=== PATIENT | female | born 1970 | race Caucasian/White ===

== ENCOUNTER 2019-10-26 07:53 | Emergency (ER) | payer MEDICAID ==
[~2019-10-26] VITALS: Ht 167.6 cm; Wt 72.0 kg
[~2019-10-26 07:53] MED LIST: ALBU8.5H4 IH; ASPI-130 PO; BUTA-281 PO; CALC-1233 PO; CARB1DRO12 EACHEYE; CARB1TAB23 PO; CYCL-394 PO; DESO60OI10 TP; DIPH-423 PO; ESTR1PAT60 TD; FLUO15OI2 TP; FLUO20CA39 PO; HYDR-3965 PO; HYDR200T84 PO; IBUP-1984 PO; LORA-512 PO; METH2.5T55 PO; MULT-785 PO; OMEP-84 PO; PRED-352 PO; TRAZ-91 PO
[2019-10-26 07:57] VITALS: BP 104/68
[2019-10-26] MEDS ORDERED: AZIT-72 PO (08:14)
== END 2019-10-26 08:28 | disposition home or self-care (01) ==
LOC: ER 07:53
DX: H66.92 Otitis media, unspecified, left ear (principal); G43.909 Migraine, unspecified, not intractable, without status migrainosus; J44.9 Chronic obstructive pulmonary disease, unspecified; M19.90 Unspecified osteoarthritis, unspecified site; G89.29 Other chronic pain; M79.7 Fibromyalgia; M06.9 Rheumatoid arthritis, unspecified; F17.200 Nicotine dependence, unspecified, uncomplicated; Z98.890 Other specified postprocedural states; Z79.82 Long term (current) use of aspirin; Z79.899 Other long term (current) drug therapy; Z88.8 Allergy status to other drugs, medicaments and biological substances; Z88.0 Allergy status to penicillin; Z88.2 Allergy status to sulfonamides; Z88.5 Allergy status to narcotic agent; Z88.3 Allergy status to other anti-infective agents
CPT/HCPCS: 99283